=== PATIENT | male | born 1975 | race Caucasian/White ===

== ENCOUNTER 2017-12-07 10:09 | Inpatient (IN) | payer OTHER ==
[2017-12-07 10:51] VITALS: BMI 16.8
--- NOTE | 2017-12-07 16:03 | HP ---
Admission ROS [facility] Allergies/Adverse Reactions: Allergies Allergy/AdvReac Type Severity Reaction Status Date / Time broccoli Allergy Verified 12/07/17 18:33 spinach Allergy Verified 12/07/17 18:33 History of Present Illness: pt here requesting rehab from cocaine and cannabis use , reports cannabis 50 $/ day , cocaine 100$ /day since age 13 , denies ivdu use . this is the pt's first tx episode . illicits : heroin once a month tobacco : 1 ppd , requesting nrt w/ patch pmhx : HIV + dx 1999 ( RF=ST ) , ID clinic = [facility] , did not get meds this month , did not picker feeder from his dr . does not know name of meds . pshx : denies psych : denies Exam Limitations: No Limitations - Ebola screening Have you traveled outside of the country in the last 21 days: No Have you had contact with anyone from an Ebola affected area: No Have you been sick,other than usual withdrawal symptoms: No Do you have a fever: No - Review of Systems Constitutional: No Symptoms Reported EENT: reports: No Symptoms Reported Respiratory: reports: No Symptoms reported Cardiac: reports: No Symptoms Reported GI: reports: No Symptoms Reported : reports: No Symptoms Reported Musculoskeletal: reports: No Symptoms Reported Integumentary: reports: No Symptoms Reported Neuro: reports: No Symptoms reported Psychiatric: reports: No Sypmtoms Reported, Judgement Intact, Orientated x3 Other Systems: Reviewed and Negative Patient History - Patient Medical History Hx Asthma: Yes Hx Chronic Obstructive Pulmonary Disease (COPD): No Hx Cardiac Disorders: No Hx Hypertension: No Hx Seizures: No Hx Diabetes: No Hx Gastrointestinal Disorders: Yes (sx for stomach ulcer in 1989) Hx Genitourinary Disorders: No Hx Sexually Transmitted Disorders: No Hx Renal Disease (ESRD): No Hx Depression: No Hx Suicide Attempt: No Hx Schizophrenia: No - Patient Surgical History Past Surgical History: Yes Hx Neurologic Surgery: No Hx Cataract Extraction: No Hx Cardiac Surgery: No Hx Lung Surgery: No Hx Breast Surgery: No Hx Breast Biopsy: No Hx Abdominal Surgery: Yes (ulcer) Hx Appendectomy: No Hx Cholecystectomy: No Hx Genitourinary Surgery: No Hx Section: No Hx Orthopedic Surgery: No Anesthesia Reaction: No - PPD History Previous Implant?: Yes Documented Results: Negative w/o proof Implanted On Prior R Admission?: No - Smoking Cessation Smoking history: Current every day smoker Have you smoked in the past 12 months: Yes Aproximately how many cigarettes per day: 20 Hx Chewing Tobacco Use: No Initiated information on smoking cessation: No - Substances Abused Crack Route: Smoking Frequency: Daily Amount used: $100 Age of first use: 13 Date of Last Use: 12/06/17 Heroin Route: Inhalation Frequency: 1-3 times last 30 days Amount used: 2 bags Age of first use: 13 Date of Last Use: 12/06/17 Marijuana Route: Smoking Frequency: Daily Amount used: $50 Age of first use: 5 Date of Last Use: 12/05/17 Family Disease History - Family Disease History Family History: Denies Admission Physical Exam [facility] - Vital Signs Vital Signs: Vital Signs - 24 hr 12/07/17 10:49 Temperature 97.7 F Pulse Rate 68 Respiratory 18 Rate Blood Pressure 100/68 - Physical General Appearance: Yes: Nourished, Disheveled, Mild Distress, Other (fatigued) HEENTM: Yes: Within Normal Limits, EOMI, Hearing grossly Normal, Normal ENT Inspection, Normocephalic, Normal Voice, NOLAN, Pharynx Normal Respiratory: Yes: Within Normal Limits, Chest Non-Tender, Lungs Clear, Normal Breath Sounds, No Respiratory Distress, No Accessory Muscle Use Neck: Yes: Within Normal Limits, No masses,lesions,Nodules, Trachea in good position Cardiology: Yes: Within Normal Limits, Regular Rhythm, Regular Rate Abdominal: Yes: Within Normal Limits, Normal Bowel Sounds, Non Tender, Flat, Soft Genitourinary: Yes: Within Normal Limits Back: Yes: Within Normal Limits, Normal Inspection Musculoskeletal: Yes: Within Normal Limits, full range of Motion, Gait Steady, Pelvis Stable Extremities: Yes: Within Normal Limits, Normal Capillary Refill, Normal Inspection, Normal Range of Motion, Non-Tender Neurological: Yes: Within Normal Limits, Fully Oriented, Alert, Motor Strength 5 /5, Normal Mood/Affect, Normal Response, Depressed Affect Integumentary: Yes: Within Normal Limits, Normal Color, Dry, Warm Lymphatic: Yes: Within Normal Limits - Diagnostic (1) Cocaine dependence Current Visit: Yes Status: Chronic Qualifiers: Substance use status: uncomplicated Qualified Code(s): F14.20 - Cocaine dependence, uncomplicated (2) Cannabis dependence Current Visit: Yes Status: Chronic (3) Tobacco dependence due to cigarettes Current Visit: Yes Status: Chronic [facility] Breath Alcohol Content Breath Alcohol Content: 0 Urine Drug Screen - Results Drug Screen Negative: No Urine Drug Screen Results: THC-Marijuana, COLLIN-Cocaine
[2017-12-07] MEDS ORDERED: MENTHOL/PHENOL 1 EACH UD MM PRN (16:06)
[2017-12-07] MEDS ORDERED: guaiFENesin/D-METHORPHAN HB 10 ML UNIT-DOSE CUPS PO PRN (16:06)
[2017-12-07] MEDS ORDERED: MAG HYDROX/AL HYDROX/SIMETH 30 ML UNIT-DOSE CUP PO PRN (16:06)
[2017-12-07] MEDS ORDERED: IBUPROFEN 400 MG TABLET (FP) PO PRN (16:06)
[2017-12-07] MEDS ORDERED: MAGNESIUM CITRATE 300 ML BOTTLE PO PRN (16:06)
[2017-12-07] MEDS ORDERED: P-EPHED 60MG/TRIPROLIDI 2.5MG TABLET PO PRN (16:06)
[2017-12-07] MEDS ORDERED: MAGNESIUM HYDROX 2400MG/30ML ORAL SUSPENSION 30 ML CUP PO PRN (16:06)
[2017-12-07] MEDS ORDERED: ACETAMINOPHEN 325 MG TABLET (FP) PO PRN (16:06)
[2017-12-07] MEDS ORDERED: ALBUTEROL SO4 8 GM HFA INHALER IH PRN (16:08)
[2017-12-07] MEDS ORDERED: TUBERCULIN PPD 5 TU/0.1ML VIAL ID ONE (17:38)
[2017-12-07] MEDS: NICOTINE 14 MG/24 HOURS TOPICAL PATCH TD SCH (18:06)
[2017-12-07] MEDS: THIAMINE HCL 100 MG TABLET (FP) PO SCH (21:50)
[2017-12-07] MEDS ORDERED: MELATONIN 5 MG TABLETS PO PRN (22:00)
[2017-12-08 01:25] LABS: URINE APPEARANCE CLEAR; URINE BILIRUBIN NEGATIVE (<2.0 mg/dL); URINE COLOR YELLOW; URINE GLUCOSE (UA) NEGATIVE (NEGATIVE); URINE KETONE NEGATIVE (NEGATIVE); URINE LEUK ESTERASE NEGATIVE (NEGATIVE); URINE NITRITE NEGATIVE (NEGATIVE); URINE PROTEIN NEGATIVE (NEGATIVE); URINE UROBILINOGEN NEGATIVE mg/dL (0.2-1.0)
[2017-12-08] MEDS: PRENATAL VITAMINS W/ FOLIC ACID TABLET (FP) PO SCH (10:11)
[2017-12-08] MEDS: NICOTINE 14 MG/24 HOURS TOPICAL PATCH TD SCH (10:12)
--- NOTE | 2017-12-08 10:35 | EKG ---
Test Reason : Blood Pressure : / mmHG Vent. Rate : 069 BPM Atrial Rate : 069 BPM P-R Int : 106 ms QRS Dur : 092 ms QT Int : 404 ms P-R-T Axes : 060 088 072 degrees QTc Int : 432 ms SINUS RHYTHM WITH SHORT ID INCOMPLETE RIGHT BUNDLE BRANCH BLOCK NO PREVIOUS ECGS AVAILABLE Confirmed by JENARO DICKENS MD ([id number]) on 12/08/2017 10:35:29 AM Referred By: Confirmed By:JENARO DICKENS MD
[2017-12-08 11:14] LABS: HEMATOCRIT 45.4 % (35.4-49); MCH 29.7 pg (25.7-33.7); MCHC 33.1 g/dl (32.0-35.9); MEAN CELL VOLUME 89.7 fl (80-96); MEAN PLT VOLUME 8.6 fl (7.5-11.1); PLATELET COUNT 172 K/MM3 (134-434); RBC 5.07 M/mm3 (4.00-5.60); RDW 15.2 % (11.9-15.9); WHITE BLOOD COUNT 4.3 K/mm3 (4.0-10.0)
[2017-12-08 11:18] LABS: ALBUMIN 3.6 g/dl (3.4-5.0); ALK PHOS 106 U/L (45-117); ANION GAP 8 MMOL/L (8-16); BILIRUBIN,TOTAL 0.7 mg/dL (0.2-1); BLOOD UREA NITROGEN 13 mg/dL (7-18); CHLORIDE 106 mmol/L (98-107); CO2 27 mmol/L (21-32); CREATININE 0.8 mg/dL (0.55-1.3); GLUCOSE,RANDOM 79 mg/dL (74-106); POTASSIUM 4.8 mmol/L (3.5-5.1); SGOT/AST 19 U/L (15-37); SGPT/ALT 30 U/L (13-61); SODIUM 141 mmol/L (136-145); TOT PROT 7.8 g/dl (6.4-8.2)
[2017-12-08] MEDS: THIAMINE HCL 100 MG TABLET (FP) PO SCH (21:26)
[2017-12-09] MEDS: NICOTINE 14 MG/24 HOURS TOPICAL PATCH TD SCH (10:25)
[2017-12-09] MEDS: PRENATAL VITAMINS W/ FOLIC ACID TABLET (FP) PO SCH (10:25)
[2017-12-09] MEDS: THIAMINE HCL 100 MG TABLET (FP) PO SCH (21:14)
--- NOTE | 2017-12-10 07:39 | HP ---
Psychiatrist Admission - Data Date of interview: 12/10/17 Admission source: [facility] Identifying data: This is the first [facility] admission for this 42 years old male, unemployed on SSI, homeless Medical History: Significant for bronchial asthma, HIV since 1999 and history of abdominal surgery for gastric ulcer. Smokes cigarettes 1 ppd Psychiatric History: Denies history of previous psychiatric treatment Physical/Sexual Abuse/Trauma History: Denies history of emotional, physical or sexual abuse as well as DV relationship. No service Additional Comment: Reports history of multiple previous arrests since age 13 including 3 felony convictions. Denies being on parole/probation at present but told technical report writer that he has a warrant for his arrest Vital Signs: Vital Signs - 24 hr 12/10/17 12/10/17 12/10/17 00:30 03:30 07:17 Temperature 97.8 F Pulse Rate 86 Respiratory 18 18 18 Rate Blood Pressure 102/62 Allergies/Adverse Reactions: Allergies Allergy/AdvReac Type Severity Reaction Status Date / Time broccoli Allergy Verified 12/07/17 18:33 spinach Allergy Verified 12/07/17 18:33 Date of last physical exam: 12/07/17 Concur with the findings of this exam: Yes - Substance Abuse/Tx History Hx Alcohol Use: No Hx Substance Use: Yes Substance Use Type: Cocaine (Started Smoking crack cocaine at age 13, consumes $ 100 worth daily. Last smoked on 12/06/17), Heroin (Started using heroin at age 13, consumes 2 bags 1-3 tmes in the last 30 days. Last used on 12/06/17), Marijuana (Started smkoing marijuana at age 5, consumes $50 worth daily. Last smoked on 12/05/17) Hx Substance Use Treatment: Yes (5 previous inpt detox & 4 inpt rehab admissions ) Mental Status Exam - Mental Status Exam Alert and Oriented to: Time, Place, Person Cognitive Function: Fair Patient Appearance: Disheveled Mood: Hopeful, Euthymic Affect: Appropriate Patient Behavior: Cooperative Speech Pattern: Clear Voice Loudness: Normal Thought Process: Intact Thought Disorder: Not Present Hallucinations: Denies Suicidal Ideation: Denies Homicidal Ideation: Denies Insight/Judgement: Fair Sleep: Poorly Appetite: Poor Muscle strength/Tone: Normal Gait/Station: Normal Psychiatric Findings - Problem List ([place] 1, 2,3) (1) Cocaine dependence Current Visit: Yes Status: Acute Qualifiers: Substance use status: uncomplicated Qualified Code(s): F14.20 - Cocaine dependence, uncomplicated (2) Cannabis dependence Current Visit: Yes Status: Acute (3) Nicotine dependence Current Visit: Yes Status: Chronic (4) Substance-induced sleep disorder Current Visit: Yes Status: Acute (5) Substance-induced sleep disorder Current Visit: Yes Status: Acute (6) HIV (human immunodeficiency virus infection) Current Visit: Yes Status: Chronic (7) Bronchial asthma Current Visit: Yes Status: Chronic - Initial Treatment Plan Initial Treatment Plan: 1) Start Melatonin 10 mg po HS prn for insomnia. 2) Monitor progress
[2017-12-10] MEDS: NICOTINE 14 MG/24 HOURS TOPICAL PATCH TD SCH (10:35)
[2017-12-10] MEDS: PRENATAL VITAMINS W/ FOLIC ACID TABLET (FP) PO SCH (10:36)
[2017-12-10] MEDS: THIAMINE HCL 100 MG TABLET (FP) PO SCH (21:29)
[2017-12-10] MEDS: MELATONIN 5 MG TABLETS PO PRN (21:33)
[2017-12-11] MEDS: PRENATAL VITAMINS W/ FOLIC ACID TABLET (FP) PO SCH (10:07)
[2017-12-11] MEDS: NICOTINE 14 MG/24 HOURS TOPICAL PATCH TD SCH (10:07)
[2017-12-11] MEDS: THIAMINE HCL 100 MG TABLET (FP) PO SCH (21:39)
[2017-12-11] MEDS: MELATONIN 5 MG TABLETS PO PRN (21:40)
[2017-12-12] MEDS: PRENATAL VITAMINS W/ FOLIC ACID TABLET (FP) PO SCH (10:01)
[2017-12-12] MEDS: NICOTINE 14 MG/24 HOURS TOPICAL PATCH TD SCH (10:01)
--- NOTE | 2017-12-12 15:16 | PN ---
[facility] Progress Note Note: CALLED BY NURSE HEYDI EAST ABOUT PT C/O FREQUENT LOOSE STOOLS. Vital Signs - 24 hr 12/12/17 12/12/17 12/12/17 00:30 03:30 06:49 Temperature 98.1 F Pulse Rate 71 Respiratory 18 18 16 Rate Blood Pressure 93/65 Laboratory Tests 12/07/17 12/08/17 12/08/17 23:59 08:00 08:00 WBC 4.3 RBC 5.07 Hgb 15.0 Hct 45.4 MCV 89.7 MCH 29.7 MCHC 33.1 RDW 15.2 Plt Count 172 MPV 8.6 Sodium 141 Potassium 4.8 Chloride 106 Carbon Dioxide 27 Anion Gap 8 BUN 13 Creatinine 0.8 Creat Clearance w eGFR > 60 Random Glucose 79 Calcium 9.0 Total Bilirubin 0.7 AST 19 ALT 30 Alkaline Phosphatase 106 Total Protein 7.8 Albumin 3.6 Urine Color Yellow Urine Appearance Clear Urine pH 6.0 Ur Specific [place] 1.017 Urine Protein Negative Urine Glucose (UA) Negative Urine Ketones Negative Urine Blood Negative Urine Nitrite Negative Urine Bilirubin Negative Urine Urobilinogen Negative Ur Leukocyte Esterase Negative RPR Titer 12/08/17 08:00 WBC RBC Hgb Hct MCV MCH MCHC RDW Plt Count MPV Sodium Potassium Chloride Carbon Dioxide Anion Gap BUN Creatinine Creat Clearance w eGFR Random Glucose Calcium Total Bilirubin AST ALT Alkaline Phosphatase Total Protein Albumin Urine Color Urine Appearance Urine pH Ur Specific [place] Urine Protein Urine Glucose (UA) Urine Ketones Urine Blood Urine Nitrite Urine Bilirubin Urine Urobilinogen Ur Leukocyte Esterase RPR Titer Nonreactive LABS NOTED. IMPRESSION; R/O DIARRHEA PLAN:IMODIUM PRN DIRECTED. LOMOTIL IF IMODIUM NOT EFFECTIVE.
[2017-12-12] MEDS: LOPERAMIDE HCL 2 MG CAPSULE PO PRN (15:31)
[2017-12-12] MEDS: MELATONIN 5 MG TABLETS PO PRN (21:29)
[2017-12-12] MEDS: THIAMINE HCL 100 MG TABLET (FP) PO SCH (21:29)
[2017-12-13] MEDS: NICOTINE 14 MG/24 HOURS TOPICAL PATCH TD SCH (10:12)
[2017-12-13] MEDS: PRENATAL VITAMINS W/ FOLIC ACID TABLET (FP) PO SCH (10:12)
[2017-12-13] MEDS: MELATONIN 5 MG TABLETS PO PRN (21:30)
[2017-12-13] MEDS: THIAMINE HCL 100 MG TABLET (FP) PO SCH (21:30)
[2017-12-14] MEDS: PRENATAL VITAMINS W/ FOLIC ACID TABLET (FP) PO SCH (09:47)
[2017-12-14] MEDS: NICOTINE 14 MG/24 HOURS TOPICAL PATCH TD SCH (09:48)
--- NOTE | 2017-12-14 21:24 | PN ---
[facility] Progress Note Note: C/o itch (R) inner thigh and (R) back x 4 days. Hx: HIV (+). Not currently on HIV meds. Objective: Alert and oriented. Vital Signs Period Temp Pulse Resp BP Sys/Ashley Pulse Ox Last 24 Hr 98.2 F 71 16-18 91/67 Slightly raised red rash on (R) inner thigh, approx 3 " x 1" and (R) flank. approx 2 inch circular. Assessment: Rash Early remission cocaine and cannabis. Plan: Hydrocortisone cream TID prn. Notify staff, if no improvement. Continue rehab.
[2017-12-14] MEDS ORDERED: HYDROCORTISONE 1% TOPICAL LOTION 118 ML BOTTLE TP PRN (21:25)
[2017-12-14] MEDS: THIAMINE HCL 100 MG TABLET (FP) PO SCH (21:29)
[2017-12-14] MEDS: MELATONIN 5 MG TABLETS PO PRN (21:31)
[2017-12-15] MEDS: PRENATAL VITAMINS W/ FOLIC ACID TABLET (FP) PO SCH (10:05)
[2017-12-15] MEDS: NICOTINE 14 MG/24 HOURS TOPICAL PATCH TD SCH (10:05)
[2017-12-15] MEDS: THIAMINE HCL 100 MG TABLET (FP) PO SCH (21:33)
[2017-12-15] MEDS: MELATONIN 5 MG TABLETS PO PRN (21:34)
[2017-12-16] MEDS: NICOTINE 14 MG/24 HOURS TOPICAL PATCH TD SCH (09:57)
[2017-12-16] MEDS: PRENATAL VITAMINS W/ FOLIC ACID TABLET (FP) PO SCH (09:57)
[2017-12-16] MEDS: MELATONIN 5 MG TABLETS PO PRN (21:28)
[2017-12-16] MEDS: THIAMINE HCL 100 MG TABLET (FP) PO SCH (21:28)
[2017-12-17] MEDS: NICOTINE 14 MG/24 HOURS TOPICAL PATCH TD SCH (09:56)
[2017-12-17] MEDS: PRENATAL VITAMINS W/ FOLIC ACID TABLET (FP) PO SCH (09:56)
[2017-12-17] MEDS: THIAMINE HCL 100 MG TABLET (FP) PO SCH (21:28)
[2017-12-17] MEDS: MELATONIN 5 MG TABLETS PO PRN (21:28)
[2017-12-18] MEDS: NICOTINE 14 MG/24 HOURS TOPICAL PATCH TD SCH (09:52)
[2017-12-18] MEDS: PRENATAL VITAMINS W/ FOLIC ACID TABLET (FP) PO SCH (09:52)
[2017-12-18] MEDS: LOPERAMIDE HCL 2 MG CAPSULE PO PRN (16:00)
[2017-12-18] MEDS: MELATONIN 5 MG TABLETS PO PRN (21:25)
[2017-12-18] MEDS: THIAMINE HCL 100 MG TABLET (FP) PO SCH (21:25)
[2017-12-19] MEDS: PRENATAL VITAMINS W/ FOLIC ACID TABLET (FP) PO SCH (10:22)
[2017-12-19] MEDS: NICOTINE 14 MG/24 HOURS TOPICAL PATCH TD SCH (10:22)
[2017-12-19] MEDS: THIAMINE HCL 100 MG TABLET (FP) PO SCH (21:38)
[2017-12-19] MEDS: MELATONIN 5 MG TABLETS PO PRN (21:39)
[2017-12-20] MEDS: NICOTINE 14 MG/24 HOURS TOPICAL PATCH TD SCH (10:12)
[2017-12-20] MEDS: PRENATAL VITAMINS W/ FOLIC ACID TABLET (FP) PO SCH (10:12)
--- NOTE | 2017-12-20 17:59 | PN ---
Psychiatric Progress Note Vital Signs: Vital Signs Period Temp Pulse Resp BP Sys/Ashley Pulse Ox Last 24 Hr 97.6 F 82 18-18 92/55 Date of Session: 12/20/17 Chief Complaint:: "Discharge" HPI: Patient admitted to for cocaine/crack dependence. ROS: Significant for bronchial asthma, HIV since 1999 and history of abdominal surgery for gastric ulcer. Current Medications: Active Medications Generic Name Dose Route Start Last Admin Trade Name Freq PRN Reason Stop Dose Admin Acetaminophen 650 mg 12/07/17 16:06 Tylenol - PO Q4H PRN FEVER Al Hydroxide/Mg Hydroxide 30 ml 12/07/17 16:06 Mylanta Oral Suspension - PO Q6H PRN DYSPEPSIA Albuterol Sulfate 2 puff 12/07/17 16:08 Ventolin Hfa Inhaler - IH Q4H PRN ASTHMA Eucalyptus/Menthol/Phenol/Sorbitol 1 each 12/07/17 16:06 Cepastat Lozenge - MM Q4H PRN SORE THROAT Guaifenesin 10 ml 12/07/17 16:06 Robitussin Dm - PO Q6H PRN COUGH Hydrocortisone 1 applic 12/14/17 21:25 12/14/17 22:31 Hytone 1% Lotion - TP 1 applic Q8H PRN Administration FOR ITCHING Ibuprofen 400 mg 12/07/17 16:06 12/18/17 21:36 Motrin - PO 400 mg Q6H PRN Administration Pain level 4-6 Loperamide HCl 4 mg 12/12/17 15:12 12/18/17 16:00 Imodium - PO 4 mg Q6H PRN Administration DIARRHEA Magnesium Citrate 300 ml 12/07/17 16:06 Citroma - PO Q48H PRN CONSTIPATION Magnesium Hydroxide 30 ml 12/07/17 16:06 Milk Of Magnesia - PO DAILY PRN CONSTIPATION Melatonin 10 mg 12/10/17 22:00 12/19/17 21:39 Melatonin PO 10 mg HS PRN Administration INSOMNIA Nicotine 14 mg 12/07/17 17:00 12/20/17 10:12 Nicoderm Patch - TD Not Given DAILY JEFFY Multivit/Folic Acid/Iron 1 tab 12/08/17 10:00 12/20/17 10:12 Vitamins (Sjr) - PO 1 tab DAILY JEFFY Administration Pseudoephedrine/Triprolidine 1 combo 10/12/18 16:06 Actifed - PO TID PRN NASAL CONGESTION Thiamine HCl 100 mg 12/07/17 22:00 12/19/17 21:38 Vitamin B1 - PO 100 mg HS JEFFY Administration Medication(s) Change(s): No. Current Side Effect: No Lab tests ordered: No Lab tests reviewed: Yes Provider note:: Patient will complete the [facility] rehabilitation program on . He has met his treatment goals and will continue to address his issues at the Crisis center. He verbalized understanding the consequences of his cocaine/ crack addicition and the need to make positive changes to his lifestyle in order to maintain abstinence. Patient is stable for discharge on 12/21/17. Total face to face time:: 35 Mental Status Exam - Mental Status Exam Alert and Oriented to: Time, Place, Person Cognitive Function: Good Patient Appearance: Well Groomed Mood: Hopeful Affect: Appropriate Patient Behavior: Appropriate, Cooperative Speech Pattern: Clear, Appropriate Voice Loudness: Normal Thought Process: Intact, Goal Oriented Thought Disorder: Not Present Hallucinations: Denies Suicidal Ideation: Denies Homicidal Ideation: Denies Insight/Judgement: Good Sleep: Well Appetite: Good Muscle strength/Tone: Normal Gait/Station: Normal Psychiatric Treatment Plan - Problem List (1) Cannabis dependence Current Visit: Yes (2) Cocaine dependence Current Visit: Yes Qualifiers: Substance use status: uncomplicated Qualified Code(s): F14.20 - Cocaine dependence, uncomplicated (3) Substance-induced sleep disorder Current Visit: Yes (4) Nicotine dependence Current Visit: Yes
[2017-12-20] MEDS: THIAMINE HCL 100 MG TABLET (FP) PO SCH (21:37)
[2017-12-20] MEDS: MELATONIN 5 MG TABLETS PO PRN (21:37)
[2017-12-21 07:05] VITALS: BP 103/58; PULSE 74; TEMP 98
[2017-12-21] MEDS: NICOTINE 14 MG/24 HOURS TOPICAL PATCH TD SCH (10:14)
[2017-12-21] MEDS: PRENATAL VITAMINS W/ FOLIC ACID TABLET (FP) PO SCH (10:14)
== END 2017-12-21 10:15 | disposition home or self-care (01) | DRG 772 ==
LOC: YASAS 10:09 → Y5N 16:25
PROVIDERS: ADMIT Psychiatry & Neurology Psychiatry; ATTEND Psychiatry & Neurology Psychiatry
PROC: HZ42ZZZ Group Counseling for Substance Abuse Treatment, Cognitive-Behavioral (ICD-10-PCS; principal; 2017-12-06)
DX: F14.20 Cocaine dependence, uncomplicated (principal); F12.20 Cannabis dependence, uncomplicated; F17.210 Nicotine dependence, cigarettes, uncomplicated; F19.282 Other psychoactive substance dependence with psychoactive substance-induced sleep disorder; Z21 Asymptomatic human immunodeficiency virus [HIV] infection status; R21 Rash and other nonspecific skin eruption; J45.909 Unspecified asthma, uncomplicated; Z59.0 Homelessness
CPT/HCPCS: 36415; 80053; 81003; 85027; 86593; 93005; 93010